=== PATIENT | female | born 1975 | race Caucasian/White ===

== ENCOUNTER → 2020-02-13 08:41 | Outpatient (CLI) | payer BC, SELFPAY ==
--- NOTE | ~2020-02-13 | MR_ITS ---
EXAMINATION: MR brain IAC wo/w con DATE: 02/13/2020 09:52 INDICATION: Sensorineural hearing loss. TECHNIQUE: Magnetic resonance imaging (MRI) of the brain, brainstem, and internal auditory canals was performed without and with 18 mm MultiHance intravenous contrast. Sequences included sagittal and ax ial T1-weighted FSE, axial diffusion-weighted FS EPI, axial T2*-weighted GRE, axial T2-weighted FLAIR Propeller, axial T2-weighted Propeller, small cheej-ur-npwr coronal FIESTA, small clxck-ql-aqjg austin nal T1-weighted FSE, and small yuujj-vs-mvlv axial T1-weighted SPGR. Postcontrast sequences included axial T1-weighted FSE, small veizf-kc-epvp coronal T1-weighted FSE, and small qxwtw-zi-skrn axial T1- weighted SPGR. Apparent diffusion coefficient (ADC) maps were created. COMPARISON: None. FINDINGS: There is no intracranial hemorrhage, acute infarction, or abnormal intracranial mass lesion . The ventricles are normal in size. The paranasal sinuses are clear. The orbits are normal. The inte rnal auditory canals and inner and middle ears are normal. The mastoid air cells are normal. IMPRESSION: 1. Normal brain. Reviewed, dictated and finalized at location A. IMPRESSION: 1. Normal brain.
[2020-02-13 09:09] LABS: Estimated Glomerular Filt Rate > 60
== END ==
PROVIDERS: PCP Nurse Practitioner Family; Visit Provider Otolaryngology
DX: H90.3 Sensorineural hearing loss, bilateral (principal)
CPT/HCPCS: 36415; 70553; A9577

== ENCOUNTER 2021-09-17 00:34 | Day surgery (SDC) | payer BC, SELFPAY ==
[2021-09-06 14:23] VITALS: BMI 34.0
--- NOTE | 2021-09-16 13:27 | P.PNAN_ITS ---
Anes - Eval Pre Procedure Procedure: Operation Date: 09/17/21 08:30 Proposed Procedures p Screening Colonoscopy - Isaac Drew MD Date/Time: 09/16/21 13:27 Pre Op Diagnosis: neoplasm screening Patient Data Age: 46 Gender: F Height: 1.63 m Weight: 90 kg Allergies Allergy/AdvReac Type Severity Reaction Status Date / Time No Known Allergies Allergy Verified 09/06/21 14:19 Home Medications Medication Instructions Recorded Confirmed Type L norgest/e.estradiol-e.estrad 0.15 tablet PO DAILY 09/06/21 09/06/21 History [Jaimiess] ergocalciferol (vitamin D2) 50,000 unit PO WEEKLY 09/06/21 09/06/21 History levothyroxine [Synthroid] 25 mcg PO DAILY 09/06/21 09/06/21 History spironolactone 100 mg PO DAILY 09/06/21 09/06/21 History Patient hx anesthesia problems: none Family hx anesthesia problems: none Results Review: All pre-operative results and documents have been reviewed as part of the pre-operative evaluation. [facility] Past Medical History Medical History (Updated 09/16/21 @ 13:27 by Ab Avila DO) Hypothyroidism Psoriasis Social History Social History Smoking status: Never smoker Alcohol intake: current Alcohol use details: socially Substance use: never Substance use type: does not use, former substance user, marijuana, crack/cocaine, heroin, amphetamines, hallucinogens, tranquilizers, sedatives, opiates, painkillers, club/toy designer drugs, inhalants, IV drugs, methamphetamine, prescription drug, unknown and other Living arrangements: alone Spiritual care concerns: No Exam Day of Procedure 09/16/21 13:27
--- NOTE | 2021-09-16 15:14 | PM.HPGS ---
History of Present Illness History of Present Illness Consent: Risks, benefits, and alternatives have been discussed and questions answered. Patient agrees to proceed with procedure. Chief complaint: neoplasm screening Narrative: Juany Edmond is a 46 year old female referred for colon cancer screening. This is her 1st colonoscopy. Her maternal grandmother had colon cancer. Review of Systems Review of Systems: All systems reviewed & are unremarkable except as noted in HPI and below PMFSH Past Medical History Medical History Hypothyroidism Psoriasis Social History Social History Smoking status: Never smoker Alcohol intake: current Alcohol use details: socially Substance use: never Substance use type: does not use Living arrangements: alone Spiritual care concerns: No Meds Home Medications and Allergies Home Medications Medication Instructions Recorded Confirmed Type L norgest/e.estradiol-e.estrad 0.15 tablet PO DAILY 09/06/21 09/17/21 History [Jaimiess] ergocalciferol (vitamin D2) 50,000 unit PO WEEKLY 09/06/21 09/17/21 History levothyroxine [Synthroid] 25 mcg PO DAILY 09/06/21 09/17/21 History spironolactone 100 mg PO DAILY 09/06/21 09/17/21 History Allergies Allergy/AdvReac Type Severity Reaction Status Date / Time No Known Allergies Allergy Verified 09/17/21 07:42 Exam Resp: Auscultation: clear to auscultation bilaterally Cardio: Rate: regular rate Rhythm: regular rhythm GI: GI Palp: Yes Soft to palpation and No Tenderness to palpation present (GI) Assessment and Plan Assessment and plan (1) Colon cancer screening: Code(s): Z12.11 - Encounter for screening for malignant neoplasm of colon Status: Acute Assessment and Plan: Colonoscopy with possible biopsy or polypectomy or cautery or injection of substances.
[2021-09-17 07:43] VITALS: BP 135/81; PULSE 84; RESP 16; TEMP 37.1; O2SAT 97
[2021-09-17] MEDS: LACTATED RINGERS 1,000 ML 150 ML IV CONT (07:54)
--- NOTE | 2021-09-17 07:54 | WPDANESEFPP ---
Anes - Eval Final PreProcedure Day of Procedure 09/17/21 07:54 Patient weight: obese Heart: regular rate and rhythm Lungs: clear to auscultation Airway: Mallampati scale class II Neurological: alert and oriented Last oral intake: >/= 8 hours ASA classification: II Emergent: no Anesthetic plan: proceed Anesthesia type and monitoring: general GIVS and standard monitoring Results Review: All pre-operative results and documents have been reviewed as part of the pre-operative evaluation. Informed Consent: The patient's anesthetic plan and its attendant risks and benefits were discussed with the patient/family/POA. Questions were solicited and answers provided to the satisfaction of the patient/family/POA.
[2021-09-17 08:40] VITALS: BP 100/68; PULSE 83; RESP 16; O2SAT 98
[2021-09-17 08:50] VITALS: BP 101/62; PULSE 79; RESP 21; O2SAT 97
[2021-09-17 09:00] VITALS: BP 117/78; PULSE 71; RESP 22; O2SAT 97
== END 2021-09-17 09:04 | disposition home or self-care (01) ==
PROVIDERS: Visit Provider Internal Medicine Gastroenterology
PROC: 0DJD8ZZ Inspection of Lower Intestinal Tract, Via Natural or Artificial Opening Endoscopic (ICD-10-PCS; CPT 45378; principal; 2021-09-17 08:30)
DX: Z12.11 Encounter for screening for malignant neoplasm of colon (principal); E03.9 Hypothyroidism, unspecified
CPT/HCPCS: 45378; J2704; J7120

== ENCOUNTER 2024-11-11 01:09 | Day surgery (SDC) | payer BC, SELFPAY ==
[2024-11-01 15:03] VITALS: BMI 23.7
--- NOTE | 2024-11-01 15:26 | PC.NURSE ---
Report to the Outpatient Waiting Room, entrance under the green pavilion located off [facility], at time ___929____ on date ____11/11/24___. Planned Procedure Time: ___1129 .? Time changes happen often and if your time is changed the preop area will call you the afternoon before. - You and your visitor will be asked to self-screen and do not enter if you have any COVID symptoms. Please call surgeon if you need to reschedule. - A mask is optional within the hospital at this time. Patients may have clear liquids (water, carbonated beverages, clear teas, apple juice) until 3 hours prior to surgery with a maximum of 20 ounces. - No food from midnight until time of surgery and no smoking, or chewing tobacco (or any form of nicotine). No chewing gum, candy or mints. Take only the following medications with a SIP of water on the morning of surgery: ___topiramate, levothyroxine, control___ DO NOT STOP ANY OF YOUR OTHER PRESCRIPTION MEDICATIONS PRIOR TO SURGERY EXCEPT THE FOLLOWING Hold all vitamins and supplements for 3 days per anesthesiologist. Please no make-up, nail urdu, hairspray, perfume, deodorant, or body powder the day of surgery.? No jewelry (including any body piercings) or valuables the day of surgery, leave them at home.? Please take a shower or bath the night before, or the morning of, surgery with an antibacterial soap.? Wear comfortable, loose fitting clothing.? - Jewelry must be removed prior to entering the operating room.? Rings and piercings that are not removed may be cut off. - The hospital will not accept responsibility for valuables.? - Please leave all valuables, including medications, at home the day of surgery. If you are going home after surgery, a licensed local delivery driver must drive you home.? - NO public transportation without another adult if you receive anesthesia. - We recommend that an adult stay with you for 24 hours following discharge. - We also recommend that you do not drive, make important decision, drink alcoholic beverages, or take any drugs that were not prescribed by your health care provider for at least 24 hours after your discharge time. Follow any additional instructions given to you from your surgeon. Telephone instructions given to Tifanayy and asked if any additional questions and then verbalized understanding. Patient advised to call surgeon office or pre surgery nurse liaison [phone] if any additional questions.
--- OUTSIDE RECORDS SUMMARY | 2024-11-11 01:11 | XMS_ITS | Referral Summary ---
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 Gender Identity Not on file Sexual Orientation Not on file Plan of Treatment Not on file Procedures Procedure Name Priority Date/Time Associated Diagnosis Comments SCREENING MAMMOGRAM BILATERAL W ZOFIA Schedule Routine, Read Routine (OP Routine) 02/08/2024 9:16 AM CDT Screening mammogram, encounter for from Last 3 Months or Most Recently Relevant to Health Maintenance Results * Screening Mammogram Bilateral W Zofia (02/08/2024 9:16 AM CDT) Anatomical Region Laterality Modality Breast Bilateral Mammography Narrative 02/09/2024 2:43 PM CDT Mammogram Technique: Bilateral Digital Breast Tomosynthesis, Bilateral C-view 2D Screening mammogram. Views obtained: bilateral craniocaudal and bilateral mediolateral oblique. Computer Aided Detection was performed. Mammogram Findings: The present examination has been compared to prior imaging studies performed at [facility] on 01/28/2021, 02/03/2022 and 01/24/2023. There are scattered areas of fibroglandular density. There is no suspicious abnormality in either breast. Impression: There is no mammographic evidence of malignancy. Annual screening mammography is recommended. OVERALL FINAL ASSESSMENT: BI-RADS CATEGORY 1: Negative. Procedure Note Emilee Hernández MD - 02/09/2024 Mammogram Technique: Bilateral Digital Breast Tomosynthesis, Bilateral C-view 2D Screening mammogram. Views obtained: bilateral craniocaudal and bilateral mediolateral oblique. Computer Aided Detection was performed. Mammogram Findings: The present examination has been compared to prior imaging studies performed at [facility] on 01/28/2021, 02/03/2022 and 01/24/2023. There are scattered areas of fibroglandular density. There is no suspicious abnormality in either breast. Impression: There is no mammographic evidence of malignancy. Annual screening mammography is recommended. OVERALL FINAL ASSESSMENT: BI-RADS CATEGORY 1: Negative. us Self Screening Mammogram IMG MAMMO PROCEDURES Fi nal Result from Last 3 Months or Most Recently Relevant to Health Maintenance Insurance [employer] ACCESS CHOICE Member Subscriber Plan / Payer (Ef fective 2019-Present) Name:Juany Edmond Relation to Subscriber:Self Name:Juany Edmond Payer ID:[id number] (NAIC) Type: [employer] Address: [facility] [id number] [address] OOS BLUE ACCESS OOS BLUE ACCESS OOS Care Teams Gambling Cashier Relationship Specialty Start Date End Date Alma Ewing MD [address] [address] PCP - General Gynecology 01/26/22
--- OUTSIDE RECORDS SUMMARY | 2024-11-11 01:11 | XMS_ITS | Encounter Summary ---
Author Organization [facility] Address [address] [place] [address] Care Team Providers Care Toeing Stockings Name Role Phone Unavailable Primary Care Provider Unavailabl e Encounter Details Date Type Department Care Team (Late st Contact Info) Description 08/22/2024 Lab Requisition [facility] - DermPath Lab [address] [facility] [place] [address] Radha Zarate DO [address] [facility] [address] [place] [address] Social History Tobacco Use Types Packs/Day Years Used Date Smoking Tobacco: Never Assessed Comments Unknown Sex and Gender Information Value Date Recorded Sex Assigned at Not on file Legal Sex Female 9:10 AM LIQUOR CLERK Gender Identity Not on file Sexual Orientation Not on file documented as of this encounter Plan of Treatment Not on file documented as of this encounter Procedures Procedure Name Priority Date/Time Associated Diagnosis Comments DERMATOPATHOLOGY Routine 08/22/2024 8:54 AM LIQUOR CLERK documented in this encounter Results * DERMATOPATHOLOGY (08/22/2024 8:54 AM LIQUOR CLERK) Case Report Dermatopathology Report Case: [id number] Authorizing Provider: Radha Zarate DO Collected: 08/22/2024 08:54 AM Ordering Location: [facility] Physician [facility] - Received: 08/23/2024 06:13 AM DermPath Lab Pathologist: Beba Isbell MD Specimen: Skin, left shoulder 2:40 PM LIQUOR CLERK DERMATOPATHOLOGY LABORATORY Final Diagnosis Specimen A. SKIN, left shoulder: BASAL CELL CARCINOMA, SUPERFICIAL MULTIFOCAL (C44.619) 2:40 PM LIQUOR CLERK DERMATOPATHOLOGY LABORATORY Clinical History R/O NMSC 2:40 PM [facility] DERMATOPATHOLOGY LABORATORY Gross Description Specimen A: Received is one formalin filled container labeled with the patient's name and designated left shoulder. The specimen consists of a shave biopsy measuring 5x4x1 mm. Jar 0. 2:40 PM [facility] DERMATOPATHOLOGY LABORATORY Microscopic Description Specimen A. SKIN, left shoulder: Attached to the undersurface of the epidermis, there are small aggregates of basaloid cells with a high nuclear to cytoplasmic ratio and peripheral palisading. 2:40 PM [facility] DERMATOPATHOLOGY LABORATORY Disclaimer An external and internal positive and negative controls are appropriate for the histochemical, immunohistochemical and immunofluorescence stain(s) in this case (if any), except where stated explicitly. The performance characteristics of the stain(s) cited in this report were developed and its performance characteristic determined by the Dermatopathology Laboratory at [facility], directed by Dr. Nessa Balderrama. These tests need not be, and therefore are not, approved by the [place] Food and Drug Administration. The tests are used for clinical purposes. Billing Codes Specimen Charges Stain Charges 60970 1 2:40 PM [facility] DERMATOPATHOLOGY LABORATORY Embedded Images 2:40 PM [facility] DERMATOPATHOLOGY LABORATORY Pathology/Cytolo gy TISSUE SPECIMEN FROM SKIN / Unknown 08/22/2024 8:54 AM LIQUOR CLERK 08/23/2024 6:13 AM LIQUOR CLERK us Radha Zarate DO LAB - PATHOLOGY/CYTOLOGY ORDERABLES Final Result DERMATOPATHOLOGY LABORATORY [facility] - Department of Dermatology [address] [phone] documented in this encounter Visit Diagnoses Not on filedocumented in this encounter
--- OUTSIDE RECORDS SUMMARY | 2024-11-11 01:11 | XMS_ITS | Encounter Summary ---
Author Organization [facility] Address [address] [place] [address] Care Team Providers Care Umbrella Tipper Name Role Phone Ailyn [facility]TRIOS [facility] Primary Care Provider Alma Acevedo MD Unavailable [phone] Toyin Smith MD Unavailable [phone] Nilson Wagner MD Unavailable Encounter Details Date Type Department Care Team (Late st Contact Info) Description 03/26/2020 MyChart Message Enc [facility] Medical [facility] Medicine [address] [address] Ailyn Rodrigues FNP-BC Carbs Social History Tobacco Use Types Packs/Day Years Used Date Smoking Tobacco: Never Smokeless Tobacco: Never Alcohol Use Standard Drinks/Week Comments Yes 0 (1 standard drink = 0.6 oz pur e alcohol) socially PHQ-2 Answer Date Recorded PHQ-2 Score - If the patient scores above 3, please move on to questions 3-9 1 03/24/2020 Comments No Sex and Gender Information Value Date Recorded Sex Assigned at Female 02/06/2024 4:14 PM CDT Legal Sex Female 1:22 PM CDT Gender Identity Female 02/06/2024 4:14 PM CDT Sexual Orientation Not on file COVID-19 Exposure Response Date Recorded In the last month, have you been in contact with someone who was confirmed or suspected to have Coronavirus / COVID-19? No / Unsure 03/24/2020 9:20 AM CDT documented as of this encounter Plan of Treatment Not on file documented as of this encounter Visit Diagnoses Not on filedocumented in this encounter Care Teams Umbrella Tipper Relationship Specialty Start Date End Date [facility] - General NURSE PRACTITIONER 11/13/18 Alma Ewing MD [address] [facility] [address] [place] [address] OBGYN 11/19/18 Toyin Smith MD [address] [place] [address] DERMATOLOGY 11/19/18 Nilson Wagner MD [facility] [place] [address] Referring Physician OTOLARYNGOLOGY 03/24/20 documented as of this encounter
--- OUTSIDE RECORDS SUMMARY | 2024-11-11 01:11 | XMS_ITS | Encounter Summary ---
Author Organization [facility] Address [address] [place] [address] Care Team Providers Care Placement Assistant Name Role Phone Ailyn RodriguesSHERRILL Primary Care Provider Alma Acevedo MD Unavailable [phone] Toyin Smith MD Unavailable [phone] Nilson Wagner MD Unavailable Encounter Details Date Type Department Care Team (Late st Contact Info) Description 09/17/2019 MyChart Message Enc [facility] Medical [address] [address] Ailyn Rodrigues FNP-BC RE: Follow Up/Update Social History Tobacco Use Types Packs/Day Years Used Date Smoking Tobacco: Never Smokeless Tobacco: Never Alcohol Use Standard Drinks/Week Comments Yes 0 (1 standard drink = 0.6 oz pur e alcohol) socially Comments Unknown Sex and Gender Information Value Date Recorded Sex Assigned at Female 02/06/2024 4:14 PM CDT Legal Sex Female 1:22 PM CDT Gender Identity Female 02/06/2024 4:14 PM CDT Sexual Orientation Not on file documented as of this encounter Plan of Treatment Not on file documented as of this encounter Visit Diagnoses Not on filedocumented in this encounter Care Teams Placement Assistant Relationship Specialty Start Date End Date Ailyn Rodrigues FNP-BC PCP - General NURSE PRACTITIONER 11/13/18 Alma Ewing MD [address] [facility] [address] [place] [address] OBGYN 11/19/18 Toyin Smith MD [facility] [address] DERMATOLOGY 11/19/18 Nilson Wagnre MD [address] [place] [address] Referring Physician OTOLARYNGOLOGY 03/24/20 documented as of this encounter
--- OUTSIDE RECORDS SUMMARY | 2024-11-11 01:11 | XMS_ITS | Clinical Summary ---
Author Organization [facility] Address [address] [place] [address] Care Team Providers Care Welfare Case Worker Name Role Phone Unavailable Primary Care Provider Unavailabl e Source Comments [facility],non-owned Affiliates and Associated Physician Practices is amultiple site organization consisting of ambulatory clinics and hospital sitesin [place], [place], [place] and [place]. This disclosure is being madepursuant to the Care Everywhere program and may not contain all information available regarding this patient. 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 Gender Identity Not on file Sexual Orientation Not on file Plan of Treatment Health Maintenance Due Date Last Done Comments COLOGUARD (AGES 45-75) - COL ON CA SCREENING 1976 COLON MONITORING 1976 COLONOSCOPY - COLON CA SCREENING 1976 CT COLONOGRAPHY - COLON CA SCREENING 1976 Colorectal Cancer Screening 1976 FIT - COLON CA SCREENING 1976 FLEX SIG - COLON CA SCREENING 1976 LIPID TESTING 1976 MAMMOGRAM 1976 PAP SMEAR 1976 HIV SCREENING 1991 HEPATITIS C SCREENING 07/29/1994 DTAP/TDAP/TD VACCINES (1 - Tdap) 1995 HEPATITIS B VACCINE (1 of 3 - 19+ 3-dose series) 1995 COVID-19 VACCINE (2023-2 5 season) 2024 DEPRESSION SCREENING 07/17/2024 INFLUENZA VACCINE (Season Ended) 2025 ZOSTER VACCINE (1 of 2) 2026 HIB VACCINE Aged Out No longer eligi ble based on patient's age to complete this topic HPV VACCINE Aged Out No longer eligi ble based on patient's age to complete this topic MENINGOCOCCAL (Group B) VACC INE SHARED DECISION-MAKING Aged Out No longer eligibl e based on patient's age to complete this topic MENINGOCOCCAL GROUPS A/C/Y/W VACCINE Aged Out No longer eligible b ased on patient's age to complete this topic PNEUMOCOCCAL VACCINE Aged Out No long er eligible based on patient's age to complete this topic Procedures Procedure Name Priority Date/Time Associated Diagnosis Comments DERMATOPATHOLOGY Routine 08/22/2024 8:54 AM CONSULTATIVE SALES ASSOCIATE from Last 3 Months Results * DERMATOPATHOLOGY (08/22/2024 8:54 AM CONSULTATIVE SALES ASSOCIATE) Case Report Dermatopathology Report Case: [id number] Authorizing Provider: Radha Zarate DO Collected: 08/22/2024 08:54 AM Ordering Location: [facility] - Received: 08/23/2024 06:13 AM DermPath Lab Pathologist: Beba Isbell MD Specimen: Skin, left shoulder 2:40 PM CONSULTATIVE SALES ASSOCIATE DERMATOPATHOLOGY LABORATORY Final Diagnosis Specimen A. SKIN, left shoulder: BASAL CELL CARCINOMA, SUPERFICIAL MULTIFOCAL (C44.619) 2:40 PM CONSULTATIVE SALES ASSOCIATE DERMATOPATHOLOGY LABORATORY Clinical History R/O NMSC 2:40 PM CONSULTATIVE SALES ASSOCIATE DERMATOPATHOLOGY LABORATORY Gross Description Specimen A: Received is one formalin filled container labeled with the patient's name and designated left shoulder. The specimen consists of a shave biopsy measuring 5x4x1 mm. Jar 0. 2:40 PM CONSULTATIVE SALES ASSOCIATE DERMATOPATHOLOGY LABORATORY Microscopic Description Specimen A. SKIN, left shoulder: Attached to the undersurface of the epidermis, there are small aggregates of basaloid cells with a high nuclear to cytoplasmic ratio and peripheral palisading. 2:40 PM CONSULTATIVE SALES ASSOCIATE DERMATOPATHOLOGY LABORATORY Disclaimer An external and internal positive and negative controls are appropriate for the histochemical, immunohistochemical and immunofluorescence stain(s) in this case (if any), except where stated explicitly. The performance characteristics of the stain(s) cited in this report were developed and its performance characteristic determined by the Dermatopathology Laboratory at [facility], directed by Dr. Nessa Balderrama. These tests need not be, and therefore are not, approved by the [place] Food and Drug Administration. The tests are used for clinical purposes. Billing Codes Specimen Charges Stain Charges 83022 1 2:40 PM [facility] DERMATOPATHOLOGY LABORATORY Embedded Images 2:40 PM [facility] DERMATOPATHOLOGY LABORATORY Pathology/Cytolo gy TISSUE SPECIMEN FROM SKIN / Unknown 08/22/2024 8:54 AM CONSULTATIVE SALES ASSOCIATE 08/23/2024 6:13 AM CONSULTATIVE SALES ASSOCIATE us Radha Zarate DO LAB - PATHOLOGY/CYTOLOGY ORDERABLES Final Result DERMATOPATHOLOGY LABORATORY [facility] - Department of Dermatology [address] [phone] from Last 3 Months Insurance [employer]
--- OUTSIDE RECORDS SUMMARY | 2024-11-11 01:11 | XMS_ITS | Clinical Summary ---
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 Gender Identity Not on file Sexual Orientation Not on file Plan of Treatment Health Maintenance Due Date Last Done Comments Cervical Cancer Screening 1976 Colon Cancer Screening-Colonoscopy 1976 Depression Screening 1976 Hepatitis C Screening 1976 DTaP/Tdap/Td Vaccine (1 - Tdap) 1987 Hepatitis B Screening 1994 Regular Well Visit/Exam 18-64 1994 Influenza Vaccine (#1) 2024 04/25/2018 Breast Cancer Screening-Mammogram 02/07/2025 02/08/2024, 01/24/2023, 02/03/2022, Additional history exists Pneumococcal vaccine <65 Aged Out No longer eligible based on patient's age to complete [...] compared to prior imaging studies performed at [facility] on 01/28/2021, 02/03/2022 and 01/24/2023. There are [...] compared to prior imaging studies performed at [facility] on 01/28/2021, 02/03/2022 and 01/24/2023. There are scattered areas of fibroglandular density. There is no suspicious abnormality in either breast. Impression: There is no mammographic evidence of malignancy. Annual screening mammography is recommended. OVERALL FINAL ASSESSMENT: BI-RADS CATEGORY 1: Negative. us Self Screening Mammogram IMG MAMMO PROCEDURES Fi nal Result from Last 3 Months or Most Recently Relevant to Health Maintenance Insurance ANTHEM ACCESS CHOICE BLUE TRADITIONAL OOS BLUE ACCESS OOS BLUE ACCESS OOS Care Teams Operations And Maintenance Technican Relationship Specialty Start Date End Date Alma Ewing MD [address] [address] PCP - General Gynecology 01/26/22
--- OUTSIDE RECORDS SUMMARY | 2024-11-11 01:11 | XMS_ITS | Clinical Summary ---
Author Organization [facility] Address [address] [place] [address] Care Team Providers Care Sales Operations Coordinator Name Role Phone EsdrasAilyn walters [facility] Primary Care Provider Alma Acevedo MD Unavailable [phone] Toyin Smith MD Unavailable [phone] Nilson Wagner MD Unavailable Allergies Active Allergy Reactions Criticality Noted Date Comments Seasonal Sneezing 11/19/2018 Medications vitamin D2, ergocalciferol, 21191 UNITS capsule 50,000 Units weekly. 10/15/2018 Active DAYSEE 0.15-0.03 &0.01 MG tablet 09/20/2018 Active SYNTHROID 25 MCG tablet Take 25 mcg by mouth every morning. 10/25/2018 Active cetirizine 10 MG tablet Take 10 mg by mouth daily. Active Multiple Vitamins-Minera ls (OCUVITE EXTRA OR) Take 1 tablet by mouth. Active spironolactone 100 MG tablet Take 0.5 tablets (50 mg total) by mouth daily. 30 tablet 11/19/2018 Active XHANCE 93 MCG/ACT Exhaler Suspension 1 spray by Each Nostril route 2 (two) times daily. 03/04/2020 Active Azelaic Acid 15 % gel 06/28/2019 Active tretinoin 0.05 % cream 06/28/2019 Active Dapsone 5 % Gel 06/28/2019 Act noemí Active Problems Problem Noted Date Diagnosed Date Prediabetes 03/24/2020 Overview (03/24/2020): 5.7% Hypertriglyceridemia 11/19/2018 Low vitamin D level 11/19/2018 Morbid obesity 11/19/2018 Dry eyes 11/19/2018 Psoriasis 11/19/2018 Other specified hypothyroidism 11/19/2018 Acne vulgaris 11/19/2018 Immunizations Immunization Administration Dates Next Due Influenza Adult (Generic) 04/25/2018 Family History Medical History Relation Comments Cancer Maternal Grandmother colon diverticulitis Maternal Grandmother Arthritis Mother endometriosis Mother Relation Status Comments Father Alive Maternal Grandmother Mother Alive Social History Tobacco Use Types Packs/Day Years [...] PM CDT Sexual Orientation Not on file Last Filed Vital Signs Vital Sign Reading Time Taken Comments Blood Pressure 120/82 03/24/2020 9:32 AM CDT Pulse 93 03/24/2020 9:32 AM CDT Temperature 36.8 C (98.3 F) 03/24/2020 9:32 AM CDT Respiratory Rate 16 03/24/2020 9:32 AM CDT Oxygen Saturation 98% 03/24/2020 9:32 AM CDT Inhaled Oxygen Concentration - - Weight 95.3 kg (210 lb) 03/24/2020 9:32 AM CDT Height 163.8 cm (5' 4.5 ) 03/24/2020 9:32 AM CDT Body Mass Index 35.49 03/24/2020 9:32 AM CDT Plan of Treatment Health Maintenance Due Date Last Done Comments Cervical Cancer Screening Pa p Smear (Age 30 to 64) Every 3 Years 1976 Colorectal Cancer Screening Colonoscopy (10 Years) 1976 Hepatitis C 1994 DTaP, Tdap and Td Vaccines ( 1 - Tdap) 1995 Hepatitis B Vaccines (1 of 3 - 19+ 3-dose series) 1995 Cervical Cancer Screening Pa p with HPV Testing (Age 30 to 64) Every 5 Years 2006 Cervical Cancer Screening with HPV 2006 Annual Physical 03/24/2021 03/24/2020 COVID-19 Vaccine (2023-2 5 season) 2024 Mammogram Screening 01/24/2025 01/24/2023 Meningococcal B Vaccine Aged Out No l onger eligible based on patient's age to complete this topic Meningococcal Vaccine Aged Out No wes moiz eligible based on patient's age to complete this topic Pneumococcal Vaccine: Pediat rics (0 to 5 Years) and At-Risk Patients (6 to 49 Years) Aged Out No longer eligi ble based on patient's age to complete this topic RSV Immunizations Under 20 Months Aged Out No longer eligible based on patient's age to complete this topic Procedures Procedure Name Priority Date/Time Associated Diagnosis Comments MAMMOGRAM GENERIC (SCAN ORDER) Routine 01/24/2023 from Last 3 Months or Most Recently Relevant to Health Maintenance Results * MAMMOGRAM (01/24/2023) Anatomical Region Laterality Modality Other us Doc Med Group Scanned SCANNING Final Resu lt from Last 3 Months or Most Recently Relevant to Health Maintenance Insurance Care Teams Sales Operations Coordinator Relationship Specialty Start Date End Date Ailyn Rodrigues FNP- PCP - General NURSE PRACTITIONER 11/13/18 Alma Ewing MD [address] [facility] [address] [place] [address] OBGYN 11/19/18 Toyin Smith MD [address] [place] [id number] DERMATOLOGY 11/19/18 Nilson Wagner MD [address] [place] [id number] Referring Physician OTOLARYNGOLOGY 03/24/20
--- OUTSIDE RECORDS SUMMARY | 2024-11-11 01:11 | XMS_ITS | Encounter Summary ---
Author Organization [facility] Address [address] [place] [id number] Care Team Providers Care Scrap Metal Collector Name Role Phone Ailyn Rodrigues Primary Care Provider Alma Acevedo MD Unavailable [phone] Toyin Smith MD Unavailable [phone] Nilson Wagner MD Unavailable Encounter Details Date Type Department Care Team (Late st Contact Info) Description 12/17/2018 MyCBinpresst Message Enc [facility] Medical [address] [address] Ailyn Rodrigues FNP-BC RE: Follow [...] on filedocumented in this encounter Care Teams Scrap Metal Collector Relationship Specialty Start Date End Date Ailyn Rodrigues FNP-BC PCP - General NURSE PRACTITIONER 11/13/18 Alma Ewing MD [address]22 [facility] [address] [place] [address] OBGYN 11/19/18 Toyin Smith MD [facility] [place] [address] DERMATOLOGY 11/19/18 Nilson Wagner MD [address] [place] [id number] Referring Physician OTOLARYNGOLOGY 03/24/20 documented as of this encounter
--- NOTE | 2024-11-11 07:38 | WPDHPUPDATE1 ---
History and Physical Update Update Date/Time: 11/11/24 07:38 History and Physical has been reviewed, including an updated exam of the patient. There are NO changes in the patient's condition. Risks, benefits, and alternatives have been discussed and questions answered. Patient agrees to proceed with procedure.
--- NOTE | 2024-11-11 07:38 | PM.HPGS ---
History of Present Illness History of Present Illness Consent: Risks, benefits, and alternatives have been discussed and questions answered. Patient agrees to proceed with procedure. Chief complaint: Abnormal Uterine Bleeding Narrative: Juany Edmond is a 49 year old female with irregular bleeding. Options were discussed with the patient. It was recommended to undergo a hysteroscopy D&C for further evaluation. Risks of infection, bleeding, perforation, and possible pathology are reviewed. Patient voices understanding and agrees to proceed. Review of Systems Review of Systems: not repeated day of surgery; patient states no changes in status [facility] Past Medical History Medical History (Updated 11/11/24 @ 07:57 by Alma Ewing MD) Hearing loss Hypothyroidism Psoriasis Surgical History Surgical History (Updated 11/11/24 @ 07:56 by Alma Ewing MD) Status post loop electrosurgical excision procedure (LEEP) of cervix Family History Family History Grandparent Carcinoma of colon Diabetes mellitus Heart disease Grandparent Heart disease Social History Social History Smoking status: Never smoker Alcohol intake: current Alcohol use details: does not drink daily and rarely weekly Substance use: never Substance use type: does not use Living arrangements: alone Spiritual care concerns: No Meds Home Medications and Allergies Home Medications ?Medication ?Instructions ?Recorded ?Confirmed ?Type ergocalciferol (vitamin D2) 1,250 50,000 unit PO WEEKLY 09/06/21 11/01/24 History mcg (50,000 unit) capsule levothyroxine 25 mcg tablet 25 mcg PO DAILY 09/06/21 11/01/24 History (Synthroid) spironolactone 100 mg tablet 50 mg PO TID 09/06/21 11/01/24 History Azelaic gel 15% PRN 1 dose topical PRN PRN wrinkles 12/02/21 11/01/24 History Clobetasol Propionate 0.05% .Route PRN 12/02/21 12/01/22 History cetirizine 10 mg tablet 10 mg PO DAILY PRN allergy symptoms 12/02/21 11/01/24 History loratadine 10 mg tablet 10 mg PO DAILY PRN allergy symptoms 12/02/21 11/01/24 History tretinoin 0.05 % topical cream 1 applic topical QHS PRN wrinkles 12/04/23 11/01/24 History topiramate 25 mg tablet 25 mg PO BID #180 tabs 10/07/24 11/01/24 Rx drospirenone 3 mg-estetrol 14.2 mg 1 tablet PO DAILY 11/01/24 11/01/24 History (28) tablet (Nextstellis) Allergies Allergy/AdvReac Type Severity Reaction Status Date / Time No Known Allergies Allergy Verified 11/01/24 14:51 Exam Const: General: healthy appearing and alert Orientation/consciousness: patient oriented x3 Resp: Effort & Inspection: normal respiratory effort : External Female Exam: normal external appearance Speculum Exam - Vagina: normal appearance of the vagina and normal vaginal discharge Speculum Exam - Cervix: normal appearance of the cervix Bimanual exam- vagina & uterus: uterine size normal and consistency normal Bimanual Exam- Adnexa, other: normal adnexae and No adnexal tenderness Neuro: General: patient oriented x3 Assessment and Plan Assessment and plan (1) Irregular menses: Code(s): N92.6 - Irregular menstruation, unspecified Status: Acute Assessment and Plan: Plan to proceed with D&C hysteroscopy
--- NOTE | 2024-11-11 09:36 | WPDANESEPPF ---
Anes - Initial Pre Proc Eval Procedure: Operation Date: 11/11/24 11:30 Proposed Procedures p Hysteroscopy Dilation and Curettage - Alma Ewing MD Date/Time: 11/11/24 09:36 Surgeon: Alma Ewing MD Pre Op Diagnosis: Abnormal Uterine Bleeding Patient Data Age: 49 Gender: F Height: 1.63 m Weight: 62.7 kg Allergies Allergy/AdvReac Type Severity Reaction Status Date / Time No Known Allergies Allergy Verified 11/11/24 10:03 Home Medications ?Medication ?Instructions ?Recorded ?Confirmed ?Type ergocalciferol (vitamin D2) 1,250 50,000 unit PO WEEKLY 09/06/21 11/11/24 History mcg (50,000 unit) capsule levothyroxine 25 mcg tablet 25 mcg PO DAILY 09/06/21 11/11/24 History (Synthroid) spironolactone 100 mg tablet 50 mg PO TID 09/06/21 11/11/24 History Azelaic gel 15% PRN 1 dose topical PRN PRN wrinkles 12/02/21 11/01/24 History cetirizine 10 mg tablet 10 mg PO DAILY PRN allergy symptoms 12/02/21 11/01/24 History loratadine 10 mg tablet 10 mg PO DAILY PRN allergy symptoms 12/02/21 11/01/24 History tretinoin 0.05 % topical cream 1 applic topical QHS PRN wrinkles 12/04/23 11/01/24 History topiramate 25 mg tablet 25 mg PO BID #180 tabs 10/07/24 11/11/24 Rx drospirenone 3 mg-estetrol 14.2 mg 1 tablet PO DAILY 11/01/24 11/11/24 History (28) tablet (Nextstellis) semaglutide 0.25 mg or 0.5 mg (2 0.25 mg subcut WEEKLY 11/11/24 11/11/24 History mg/3 mL) subcutaneous pen injector (Ozempic) Patient hx anesthesia problems: none Family hx anesthesia problems: none Results Review: All pre-operative results and documents have been reviewed as part of the pre-operative evaluation. [facility] Past Medical History Medical History (Updated 11/11/24 @ 07:57 by Alma Ewing MD) Hearing loss Hypothyroidism Psoriasis Surgical History Surgical History (Updated 11/11/24 @ 07:56 by Alma Ewing MD) Status post loop electrosurgical excision procedure (LEEP) of cervix Family History Family History Grandparent Carcinoma of colon Diabetes mellitus Heart disease Grandparent Heart disease Social History Social History Smoking status: Never smoker Alcohol intake: current Alcohol use details: does not drink daily and rarely weekly Substance use: never Substance use type: does not use Living arrangements: alone Spiritual care concerns: No Anes - Eval Final PreProcedure Day of Procedure 11/11/24 09:36 Patient weight: normal Heart: regular rate and rhythm Lungs: clear to auscultation and normal air movement Airway: Mallampati scale class II Neurological: alert and oriented Last oral intake: >/= 8 hours ASA classification: II Emergent: no Anesthetic plan: proceed Anesthesia type and monitoring: general GIVS and standard monitoring Results Review: All pre-operative results and documents have been reviewed as part of the pre-operative evaluation. Informed Consent: The patient's anesthetic plan and its attendant risks and benefits were discussed with the patient/family/POA. Questions were solicited and answers provided to the satisfaction of the patient/family/POA.
[2024-11-11] MEDS: ACETAMINOPHEN 500 MG TABLET 1000 MG PO (09:50)
[2024-11-11 10:17] VITALS: BP 112/71; PULSE 84; RESP 16; TEMP 37.3; O2SAT 100
[2024-11-11 10:21] LABS: BEDSIDEPREGUCG Negative (Negative)
[2024-11-11] MEDS: LACTATED RINGERS 1,000 ML 30 ML IV CONT (10:23)
[2024-11-11] MEDS: FERRIC SUBSULFATE 8 ML SOLUTION WITH APPLICATOR TOPICAL (11:35)
[2024-11-11 11:43] VITALS: BP 103/70; PULSE 88; RESP 14; O2SAT 96
--- NOTE | 2024-11-11 11:43 | P.OP_ITS ---
Procedure Note - Detailed Date of Procedure 11/11/24 Pre-op Diagnosis Abnormal Uterine Bleeding Post-op Diagnosis Same Procedure Performed Hysteroscopy D&C; removal of cervical polyp Surgeon Alma Ewing MD Anesthesia MAC Findings large cervical polyp versus nabothian cyst, uterus sounds to 7cm, endometrium appears grossly normal Description of Procedure The patient was taken to the operating room and placed under anesthesia in the dorsal lithotomy position. She was prepped and draped in the usual sterile fashion. [place] speculum was placed in the vagina and the cervix was grasped on anterior lip with a tenaculum. There is a large cervical mass that has prolapsed through the os. It is removed in pieces using a ring forceps. The consistency is like a polyp but there was some mucus noted to it could be a nabothian cyst. The uterus is then sounded to 7cm. The diagnostic hysteroscope was placed and no abnormalities were noted. The cervix is serially dilated to a 6 Hegar in order for the sharp curette to pass the external os. The endometrium was then curetted in a sharp fashion until a good uterine cry is noted in all areas. The cervix is noted to be oozing in several locations so Monsel's is applied to the cervix. All instruments are removed. Sponge, needle, and instrument counts are correct per the OR staff. The patient was awakened from anesthesia and taken to recovery in stable condition. Estimated Blood Loss 5 Drains No Packing No Pathology Yes ( Cervical polyp in pieces, endometrial curettings) Complications No immediate complications Condition Stable Disposition PACU
[2024-11-11] MEDS: oxyCODONE HCL (*CRX) 5 MG TAB IR PO (12:00)
[2024-11-11 12:15] VITALS: BP 106/68; PULSE 53; RESP 16
[2024-11-11 12:43] VITALS: BP 108/77; PULSE 56; RESP 16
== END 2024-11-11 12:45 | disposition home or self-care (01) ==
PROVIDERS: PCP Family Medicine; Visit Provider Obstetrics & Gynecology Gynecology
PROC: 0U5B8ZZ Destruction of Endometrium, Via Natural or Artificial Opening Endoscopic (ICD-10-PCS; CPT 58563; principal; 2024-11-11 11:30)
DX: N84.1 Polyp of cervix uteri (principal); N85.8 Other specified noninflammatory disorders of uterus; E03.9 Hypothyroidism, unspecified; L40.9 Psoriasis, unspecified; Z79.82 Long term (current) use of aspirin; Z98.890 Other specified postprocedural states; Z80.0 Family history of malignant neoplasm of digestive organs; Z82.49 Family history of ischemic heart disease and other diseases of the circulatory system
CPT/HCPCS: 58558; 88305; A9270; J1885; J2003; J2250; J2405; J2704; J3010; J7120